=== PATIENT | female | born 1990 | race Caucasian/White ===

== ENCOUNTER 2017-07-11 10:40 | Day surgery (SDC) | payer OTHER ==
[2017-07-11] MEDS ORDERED: BUPIVACAINE 0.5%-EPI 1:200000 PF 30 ML VIAL ONE (10:51)
[2017-07-11] MEDS ORDERED: ceFAZolin 2 GM/50 ML 2 GM/50 ML BAG IV ONE (10:52)
[2017-07-11 11:04] LABS: HCG UR QUAL NEGATIVE
[2017-07-11] MEDS ORDERED: LACTATED RINGERS 1,000 ML IV ONE ×2 (11:10→14:58)
[2017-07-11] MEDS ORDERED: SCOPOLAMINE PATCH TOP ONE (11:50)
[2017-07-11] MEDS ORDERED: BUPIVACAINE 0.5%-EPI 1:200000 PF 30 ML VIAL SUBQ ONE ×2 (14:42)
[2017-07-11] MEDS ORDERED: PROPOFOL 200 MG/20 ML VIAL IVP ONE (14:50)
[2017-07-11] MEDS ORDERED: MIDAZOLAM 2 MG/2 ML VIAL IVP ONE (14:50)
[2017-07-11] MEDS ORDERED: fentaNYL 250 MCG/5 ML VIAL IVP ONE (14:50)
[2017-07-11] MEDS ORDERED: NEOSTIGMINE 1 MG/1 ML 10 ML MDV IVP ONE (14:50)
[2017-07-11] MEDS ORDERED: GLYCOPYRROLATE 1 MG/5 ML VIAL IVP ONE (14:50)
[2017-07-11] MEDS ORDERED: ROCURONIUM 50 MG/5 ML VIAL IVP ONE (14:50)
[2017-07-11] MEDS ORDERED: LIDOCAINE-MPF 2% 5 ML VIAL IM ONE (14:50)
[2017-07-11] MEDS ORDERED: ONDANSETRON 4 MG/2 ML VIAL IVP ONE (14:50)
[2017-07-11] MEDS ORDERED: DEXAMETHASONE 4 MG/ML VIAL IVP ONE (14:50)
[2017-07-11] MEDS ORDERED: ACETAMINOPHEN 1,000 MG/100 ML 100 ML IV ONE (14:50)
[2017-07-11] MEDS ORDERED: KETOROLAC 30 MG/ML VIAL IVP ONE (14:50)
[2017-07-11] MEDS ORDERED: ONDANSETRON 4 MG/2 ML VIAL ONE (16:17)
[2017-07-11] MEDS ORDERED: HYDROcod/ACETAM 5/325 MG TABLET ONE (17:16)
[2017-07-11 17:39] VITALS: BP 131/76
--- NOTE | 2017-07-12 02:57 | OPERATIVE REPORT ---
DATE OF SERVICE: 07/11/2017 Physician: Zev Koch MD PREOPERATIVE DIAGNOSIS: Chronic cholecystitis with cholelithiasis. POSTOPERATIVE DIAGNOSIS: Chronic cholecystitis with cholelithiasis. OPERATION PERFORMED: Laparoscopic cholecystectomy. OPERATING SURGEON: Zev Koch MD ANESTHESIA: General. INDICATIONS FOR PROCEDURE: Patient is a 27-year-old female who has been presenting with intermittent right upper quadrant abdominal pain. She had an abdominal ultrasound, which revealed gallstones being present. FINDINGS AT SURGERY: Patient had a chronically inflamed gallbladder containing numerous gallstones. PROCEDURE: After informed consent was obtained, patient was taken to the operating room, placed in supine position. General anesthesia was administered. Patient's abdomen was then prepped and draped in the usual sterile fashion. An infraumbilical incision was made in the skin using a scalpel. Incision was then deepened down to the fascial layer. A 5 mm Optiview trocar was then inserted through the incision through the fascia and into abdominal cavity under direct vision. The abdomen was then insufflated. Looking inside, no injuries were noted. Three 5 mm ports were then placed in the right upper quadrant under direct vision. The 5 mm port at the umbilicus was then switched to a 12 mm port under direct vision. There were omental adhesions to the gallbladder which were taken down using electrocautery. This allowed access to the gallbladder. The gallbladder fundus was then grasped and lifted anteriorly and superiorly, exposing the triangle of Calot. Again, there were multiple omental adhesions which were carefully taken down using electrocautery, with care taken to avoid any injuries to the surrounding structures. The peritoneum in the triangle of Calot was then scored , allowing access to the cystic duct. Cystic duct was then isolated. The cystic artery was likewise isolated and then clipped proximally and distally, dividing it. The critical view of the gallbladder had been obtained. Clips were then placed proximally and distally along the cystic duct with it then being divided. Gallbladder was then dissected off the gallbladder bed using electrocautery, placed in the Endobag, and removed through the umbilical port. Right upper quadrant was thoroughly irrigated until the return fluid was clear. The ports were then removed with no bleeding noted at the port sites. The abdomen was then desufflated. The umbilical fascial defect was closed using #0 Vicryl suture. Skin incisions were closed using 4-0 Monocryl subcuticular stitch. Dermabond was then applied. Patient was then awakened, extubated, and taken from the operating room in stable condition. ESTIMATED BLOOD LOSS: 10 mL. COMPLICATIONS: None. CONDITION OF THE PATIENT AT THE END OF THE PROCEDURE: Stable. SPECIMENS: The gallbladder and gallstones. DRAINS AND PACKS: None. CLASSIFICATION OF WOUND: Clean, contaminated. ahsan WINTERS TD: 07/12/2017 02:56 [facility]ITALFrancis
== END 2017-07-11 10:41 | disposition home or self-care (01) ==
LOC: SDS 10:40
PROVIDERS: ATTEND Surgery
PROC: 0FT44ZZ Resection of Gallbladder, Percutaneous Endoscopic Approach (ICD-10-PCS; principal; 2017-07-11 11:15)
DX: K80.10 Calculus of gallbladder with chronic cholecystitis without obstruction (principal)
CPT/HCPCS: 47562; 81025; A9270; J0131; J0690; J3010; J3490; J7120; 88304

== ENCOUNTER 2020-05-01 10:15 | Outpatient (CLI) | payer OTHER ==
--- NOTE | 2020-05-02 12:09 | Ultrasound Report ---
LIMITED ULTRASOUND OF LEFT BREAST: 05/01/2020 CLINICAL: Palpable left breast lump. Comparison is made to exams dated: 05/01/2020 mammogram - [facility] and 04/11/2020 ul trasound - [facility]. Color flow and real-time ultrasound of the left breast 8 o'clock region were performed. Wilburn scale i mages of the real-time examination were reviewed. No significant abnormalities were seen sonographically in the left breast. IMPRESSION: NEGATIVE There is no sonographic evidence of malignancy in the region of the palpable abnormality. Exam findings were conveyed to the patient. Patient is advised to monitor for significant change. Cli nical follow-up as needed. Return to screening mammogram schedule, usually to commence at age 39. This exam was interpreted at Station ID: [id number]. Electronically Signed By: Olegario Del Castillo M.D. slc/:05/01/2020 14:37:58 Ultrasound BI-RADS: 1 Negative BI-RADS CATEGORY: (1) - 1 RECOMMENDATION: (ADDMAM) - Recommend additional mammographic views. recall n/a LATERALITY: (B)
--- NOTE | 2020-05-02 12:09 | Mammography Report ---
BILATERAL DIGITAL DIAGNOSTIC MAMMOGRAM 3D/2D: 05/01/2020 CLINICAL: Baseline exam. Palpable left breast lump by physician. Comparison is made to exam dated: 04/11/2020 ultrasound - [facility]. There are scatte red fibroglandular elements in both breasts. No significant masses, calcifications, or other findings are seen in either breast. IMPRESSION: INCOMPLETE: NEEDS ADDITIONAL IMAGING EVALUATION No mammographic evidence of malignancy. A targeted ultrasound is recommended for the left breast palpable abnormality and will immediately fo llow. This exam was interpreted at Station ID: [id number]. NOTE: For mammograms, a report in lay terms will be sent to the patient. Approximately 15% of breast malignancies will not be visualized mammographically. In the management of a palpable breast mass, a negative mammogram must not discourage biopsy of a clinically suspicious lesion. Electronically Signed By: Olegario Del Castillo M.D. slc/:05/01/2020 14:35:20 ACR BI-RADS Category 0: Incomplete 3340F PARENCHYMAL PATTERN: (A) - The breast(s) demonstrate(s) scattered fibroglandular densities. BI-RADS CATEGORY: (0) - 0 Ultrasound [id number] Immediate follow-up LATERALITY: (B)
== END 2020-05-01 10:16 | disposition home or self-care (01) ==
LOC: DI 10:15
PROVIDERS: ATTEND Family Medicine
DX: N63.24 Unspecified lump in the left breast, lower inner quadrant (principal)

== ENCOUNTER 2021-01-28 21:47 | Emergency (ER) | payer OTHER ==
[2021-01-28] MEDS ORDERED: KETOROLAC 60 MG/2 ML VIAL IM STA (22:26)
[2021-01-28] MEDS ORDERED: DEXAMETHASONE 10 MG/ML VIAL PO STA (22:26)
[2021-01-28] MEDS ORDERED: CHERRY SYRUP 10 ML UDC PO ONE (22:26)
[2021-01-28] MEDS ORDERED: HYDROcod/ACET 5/325 Prepack 4 PO STA (22:26)
[2021-01-28] MEDS ORDERED: CYCLOBENZAPRINE 10 MG Prepack 2 PO PRN (22:27)
--- NOTE | 2021-01-28 22:29 | ED Physician Documentation ---
PD HPI BACK PAIN - Stated complaint Stated Complaint: BACK PX - Chief complaint Chief Complaint: Back Pain - History obtained from History obtained from: Patient - History of Present Illness Timing - onset: How many days ago (4) Timing - duration: Days (4) Timing - details: Gradual onset, Still present Location: Lower, Right Quality: Pain, Spasm, Sharp, Similar to prior episodes Associated symptoms: No: Fever, Weakness, Numbness, Incontinent of urine, Unable to urinate, Hematuria, Incontinent of stool Improves with: Rest, Position Worsened by: Movement Contributing factors: Lifting, Twisting Similar symptoms before: Diagnosis (back pain) Recently seen: Not recently seen - Additional information Additional information: 30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 She woke up this morning barely able to move having a hard time get out of getting out of bed and she has not had relief of her pain. She has had similar pains previously never quite this bad. Review of Systems Constitutional: denies: Fever Eyes: denies: Decreased vision Ears: denies: Ear pain Nose: denies: Congestion Respiratory: denies: Cough GI: denies: Vomiting, Diarrhea : denies: Dysuria, Frequency Skin: denies: Rash Musculoskeletal: reports: Back pain. 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 - Present Medications Home Medications: Ambulatory Orders Medication Instructions Recorded Confirmed Norelgestromin/Ethin.estradiol 1 each TD Q7D 07/10/17 01/28/21 [Xulane Patch] Cyclobenzaprine [Flexeril] 10 mg PO TID PRN #20 tablet 01/28/21 HYDROcod/ACETAM 5/325 [[place] 5/325] 1 - 2 tablet PO Q6H PRN #14 tablet 01/28/21 Levothyroxine Sodium 50 mcg PO DAILY 01/28/21 01/28/21 [Levothyroxine] - Allergies Allergies/Adverse Reactions: Allergies Allergy/AdvReac Type Severity Reaction Status Date / Time No Known Drug Allergies Allergy Verified 01/28/21 21:55 - Social History Does the pt smoke?: No Smoking Status: Never smoker Does the pt drink ETOH?: No Does the pt have substance abuse?: No PD ED PE NORMAL - Vitals Vital signs reviewed: Yes - General General: Alert and oriented X 3, Well developed/nourished, Other (30 y/o female standing in the room leaning against the counter appears to be in pain. ) - HEENT HEENT: Atraumatic, PERRL, EOMI - Respiratory Respiratory: No respiratory distress - Back Back: No CVA TTP, No spinal TTP, Other (paraspinous muscle tenderness and firmness to the lower lumbar spine bilat. 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, No motor deficit, No sensory deficit, Normal speech Eye Opening: Spontaneous Motor: Obeys Commands Verbal: Oriented GCS Score: 15 - Psych Psych: Normal mood, Normal affect Results - Vitals Vitals: Vital Signs - 24 hr 01/28/21 01/28/21 21:51 22:58 Temperature 36.1 C L Heart Rate 104 H 94 Respiratory 18 16 Rate Blood Pressure 151/106 H 148/98 H O2 Saturation 97 97 Oxygen O2 Source Room air PD MEDICAL DECISION MAKING - ED course Complexity details: considered differential, d/w patient ED course: 30-year-old female appears to have a very stiff lower back and she is administered dexamethasone and Toradol we will place her on some pain medication muscle relaxant. Departure - Departure Disposition: 01 Home, Self Care Clinical Impression: Lumbar back sprain Qualifiers: Encounter type: initial encounter Qualified Code(s): S33.5XXA - Sprain of ligaments of lumbar spine, initial encounter Condition: Stable Instructions: ED Low Back Pain Injury Follow-Up: [facility]IL[facility] Peres [Provider Group] Prescriptions: Cyclobenzaprine [Flexeril] 10 mg PO TID PRN #20 tablet PRN Reason: Spasms HYDROcod/ACETAM 5/325 [[place] 5/325] 1 - 2 tablet PO Q6H PRN #14 tablet PRN Reason: Pain Forms: Activity restrictions Discharge Date/Time: 01/28/21 22:59
[2021-01-28 22:59] VITALS: BP 148/98
== END 2021-01-28 22:59 | disposition home or self-care (01) ==
LOC: ED 21:47
DX: S33.5XXA Sprain of ligaments of lumbar spine, initial encounter (principal); X58.XXXA Exposure to other specified factors, initial encounter
CPT/HCPCS: 96372; 99283; A9270

== ENCOUNTER 2021-01-29 11:11 | Outpatient (CLI) | payer OTHER | END 2021-01-29 11:12 | disposition critical access hospital (66) | LOC: EMS 11:11 | DX: L29.9 Pruritus, unspecified (principal); K14.0 Glossitis | CPT/HCPCS: A0425; A0427 ==

== ENCOUNTER 2021-01-29 11:29 | Emergency (ER) | payer OTHER ==
[2021-01-29 11:56] VITALS: BP 144/98
--- NOTE | 2021-01-29 12:12 | ED Physician Documentation ---
PD HPI SKIN - Stated complaint Stated Complaint: ALLERGIC REACTION - Chief complaint Chief Complaint: Allergic Rx - History obtained from History obtained from: Patient, EMS - History of Present Illness Timing - onset: How many hours ago (1), Today Timing - duration: Hours (1) Timing - details: Abrupt onset (she was seen in ER for back pain and got prepack Rx for FLexeril and Hydrocodone. took both shortly ago and had onset within 15- 20 minutes of swelling of tongue, itching/hives, and feeling of dyspnea. called EMS. She was given Benadryl enroute and feeling improved.), Now resolved (much improved with just mild symptoms now.) Location: [place] Quality / character: Itchy, Raised, Swelling Associated symptoms: Dyspnea, Other (had back pain prior and seen in ER overnight for that. Got meds in ER without symptoms.). No: Fever, Myalgias Contributing factors: Exposed to medication Similar symptoms before: Has not had sx before Recently seen: Emergency Dept Review of Systems Constitutional: denies: Fever, Chills Nose: denies: Rhinorrhea / runny nose, Congestion Throat: denies: Sore throat Respiratory: reports: Dyspnea. 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 - Present Medications Home Medications: Ambulatory Orders Medication Instructions Recorded Confirmed Norelgestromin/Ethin.estradiol 1 each TD Q7D 07/10/17 01/28/21 [Xulane Patch] Cyclobenzaprine [Flexeril] 10 mg PO TID PRN #20 tablet 01/28/21 HYDROcod/ACETAM 5/325 [[place]hman 5/325] 1 - 2 tablet PO Q6H PRN #14 tablet 01/28/21 Levothyroxine Sodium 50 mcg PO DAILY 01/28/21 01/28/21 [Levothyroxine] Oxycodone HCl/Acetaminophen 1 each PO Q6H PRN #12 tablet 01/29/21 [Percocet 5-325 mg Tablet] dexAMETHasone [Decadron] 4 mg PO DAILY #5 tablet 01/29/21 methocarbamoL [Robaxin] 500 mg PO Q6H PRN #25 tablet 01/29/21 - Allergies Allergies/Adverse Reactions: Allergies Allergy/AdvReac Type Severity Reaction Status Date / Time No Known Drug Allergies Allergy Verified 01/29/21 11:53 - Social History Does the pt smoke?: No Smoking Status: Never smoker Does the pt drink ETOH?: No Does the pt have substance abuse?: No PD ED PE NORMAL - Vitals Vital signs reviewed: Yes - General General: Alert and oriented X 3, No acute distress, Well developed/nourished - HEENT HEENT: Moist mucous membranes, Pharynx benign (minimal edema of the uvula. ) - Neck Neck: Supple, no meningeal sign, No adenopathy - Cardiac Cardiac: RRR, No murmur - Respiratory Respiratory: No respiratory distress, Clear bilaterally - Derm Derm: Normal color, Warm and dry, Other (no noted hives now. ) - Neuro Neuro: Alert and oriented X 3, No motor deficit, Normal speech Results - Vitals Vitals: Oxygen O2 Source Room air PD MEDICAL DECISION MAKING - ED course Complexity details: considered differential (seems acute allergic reaction to either flexeril or hydrocodone. can change Rx from those to different meds. ), d/w patient Departure - Departure Disposition: 01 Home, Self Care Clinical Impression: Acute allergic reaction Qualifiers: Encounter type: initial encounter Qualified Code(s): T78.40XA - Allergy, unspecified, initial encounter Condition: Stable Record reviewed to determine appropriate education?: Yes Instructions: ED Drug React Allergic Prescriptions: dexAMETHasone [Decadron] 4 mg PO DAILY #5 tablet Oxycodone HCl/Acetaminophen [Percocet 5-325 mg Tablet] 1 each PO Q6H PRN #12 tablet PRN Reason: pain methocarbamoL [Robaxin] 500 mg PO Q6H PRN #25 tablet PRN Reason: Spasms Comments: The allergic reaction could have been from either the Flexeril (cyclobenzaprine) or the hydrocodone. Less likely the food that you ate with it. Do not use those medications for now. We can change to a different pain medicine and muscle relaxant. For today use ibuprofen or naproxen 3 times day regularly and to that add Tylenol every 4-6 hours if needed for pains. Decadron steroid anti-inflammatory orally daily for the next several days. Use methocarbamol muscle relaxant if needed for stiffness and spasms. To that add oxycodone (Percocet) if needed for pain. When you go to the pharmacy, they will likely have the prescription from last night and tell them you do not want that one but instead these newer prescriptions. Recheck if not improved well over the next several days. If you are able to based on symptoms, try to not even have the Percocet today until you are sure the current reaction is completely resolved. Sometimes he will be some undulating symptoms with the allergic reaction it would be hard to tell that you are not having a reaction to yet the new medicine. Discharge Date/Time: 01/29/21 12:48
== END 2021-01-29 12:48 | disposition home or self-care (01) ==
LOC: EDUNIT# → ED 11:29
DX: T78.40XA Allergy, unspecified, initial encounter (principal); R22.0 Localized swelling, mass and lump, head; R06.00 Dyspnea, unspecified; L50.9 Urticaria, unspecified
CPT/HCPCS: 99283